=== PATIENT | male | born 1995 | race Caucasian/White ===

== ENCOUNTER 2020-10-16 09:17 | Emergency (ER) | payer SELFPAY ==
[~2020-10-16] VITALS: Ht 175.3 cm; Wt 81.6 kg
[2020-10-16 09:22] VITALS: BP 136/82
--- NOTE | 2020-10-16 09:28 | NUR ---
PATIENT BIBSELF, FOR A LACERATION ON LEFT MIDDLE FINGER W/ A STEEL AT WORK, CAN'T EXPLAIN HOW HE OBTAIN THE CUT. PATIENT ALERT AND ORIENTEDX4 AND ABLE TO MAKE NEEDS KNOWN. NO RESPIRATORY DISTRESS NOTED. AWAITING MD MCDONALD.
[2020-10-16] MEDS ORDERED: IBUPROFEN 600 MG TABLET ONE (09:38)
[2020-10-16] MEDS ORDERED: HYDROCODONE/APAP 5/325MG TABLET ONE (09:38)
[2020-10-16] MEDS ORDERED: LIDOCAINE 2% 20 ML MDV ONE (09:38)
[2020-10-16] MEDS: IBUPROFEN 600 MG TABLET PO ONE (09:41)
[2020-10-16] MEDS: HYDROCODONE/APAP 5/325MG TABLET PO ONE (09:42)
[2020-10-16] MEDS: LIDOCAINE 2% 20 ML MDV TP ONE (10:18)
[2020-10-16] MEDS ORDERED: CEPHALEXIN MONOHYDRATE 500 MG CAPSULE PO ONE (10:19)
[2020-10-16] MEDS: CEPHALEXIN MONOHYDRATE 500 MG CAPSULE PO ONE (10:20)
[2020-10-16] MEDS ORDERED: CEPH500C2 PO (10:48)
[2020-10-16] MEDS ORDERED: IBUP-1957 PO (10:48)
[2020-10-16] MEDS ORDERED: HYDR-3972 PO (10:48)
--- NOTE | 2020-10-16 10:52 | NUR ---
EMT DRESSED FINGER AND PLACED SPLINT
--- NOTE | 2020-10-16 11:10 | NUR ---
Patient discharged to home in stable condition. Written and verbal after care instructions given. Patient verbalizes understanding of instruction.
== END 2020-10-16 11:11 | disposition home or self-care (01) ==
LOC: ER 09:19
DX: S67.193A Crushing injury of left middle finger, initial encounter (principal); S62.633B Displaced fracture of distal phalanx of left middle finger, initial encounter for open fracture; W23.0XXA Caught, crushed, jammed, or pinched between moving objects, initial encounter; Y93.89 Activity, other specified; Y92.89 Other specified places as the place of occurrence of the external cause; Y99.8 Other external cause status
CPT/HCPCS: 29130; 73140; 99284; A6403; J3490

== ENCOUNTER → 2020-10-16 | Emergency (ER) | payer SELFPAY ==
[~2020-10-16] VITALS: Ht 175.3 cm; Wt 81.6 kg
[~2020-10-16] MED LIST: CEPH500C2 PO; HYDR-3972 PO; IBUP-1957 PO; TDAP [DIPH/PERTUSSIS/TET] 0.5 ML VIAL IM ONE
[2020-10-16 21:59] VITALS: BP 131/83
--- NOTE | 2020-10-16 22:35 | NUR ---
TDAP GIVEN TO LD.
[2020-10-16] MEDS: TDAP [DIPH/PERTUSSIS/TET] 0.5 ML VIAL IM ONE (22:40)
== END | disposition home or self-care (01) ==
LOC: ER 21:47
DX: S61.213D Laceration without foreign body of left middle finger without damage to nail, subsequent encounter (principal); X58.XXXD Exposure to other specified factors, subsequent encounter
CPT/HCPCS: 90715

== ENCOUNTER 2020-12-21 23:02 | Emergency (ER) | payer OTHER ==
[~2020-12-21] VITALS: Ht 175.3 cm; Wt 84.8 kg
[~2020-12-21 23:02] MED LIST changes: -TDAP [DIPH/PERTUSSIS/TET] 0.5 ML VIAL IM ONE
[2020-12-21] MEDS ORDERED: LEVO750T46 PO (23:50)
--- NOTE | 2020-12-21 23:58 | NUR ---
PATIENT DISCHARGED RX AND DC INSTRUCTIONS PROVIDED
[2020-12-21 23:59] VITALS: BP 144/77
== END 2020-12-21 23:58 | disposition home or self-care (01) ==
LOC: ER 23:04
DX: K52.9 Noninfective gastroenteritis and colitis, unspecified (principal); F17.200 Nicotine dependence, unspecified, uncomplicated; Z79.899 Other long term (current) drug therapy

== ENCOUNTER 2020-12-23 17:21 | Emergency (ER) | payer OTHER ==
[~2020-12-23] VITALS: Ht 175.3 cm; Wt 85.3 kg
[~2020-12-23 17:21] MED LIST changes: +LEVO750T46 PO
--- NOTE | 2020-12-23 17:53 | NUR ---
TO ER BED 10, FEVER X 10 DAYS, ON 2ND DAY OF [facility] PRESCRIBED HERE FOR "FOOD POISONING", AAOX3, BREATHING EVEN AND NON LABORED, AWAITING MD MCDONALD
[2020-12-23] MEDS ORDERED: ONDANSETRON HCL/PF 4 MG/2 ML VIAL IVP ONE (19:00)
[2020-12-23] MEDS ORDERED: IV NS 0.9% 1,000 ML BAG IV ONE (19:00)
[2020-12-23] MEDS ORDERED: ACETAMINOPHEN ES 500 MG TABLET PO ONE (19:00)
[2020-12-23] MEDS ORDERED: ONDANSETRON HCL/PF 4 MG/2 ML VIAL ONE (19:01)
[2020-12-23] MEDS ORDERED: ACETAMINOPHEN ES 500 MG TABLET ONE (19:02)
--- NOTE | 2020-12-23 19:05 | NUR ---
REC'D REPORT FROM LOLIS DELGADO FOR HONEY
--- NOTE | 2020-12-23 19:16 | NUR ---
SALINE LOCK ESTABLISHED, BLOOD DRAWN AND SENT TO LAB
--- NOTE | 2020-12-23 19:18 | NUR ---
COVID TEST COLLECTED AND SENT TO LAB
[2020-12-23 19:55] LABS: ALBUMIN 3.8 g/dL (3.4-5.0); BILIRUBIN,DIRECT 0.2 mg/dL (0.0-0.2); BILIRUBIN,TOTAL 0.6 mg/dL (0.2-1.0); CALCIUM, SERUM 8.3 mg/dL (8.5-10.1); POTASSIUM 3.6 mmol/L (3.5-5.1); TOTAL PROTEIN, SERUM 7.9 g/dL (6.4-8.2)
[2020-12-23 20:00] LABS: BASOPHILS # (AUTO) 0.1 K/uL (0.0-0.2); BASOPHILS % (AUTO) 0.4 % (0.0-2.0); EOSINOPHILS % (AUTO) 0.3 % (0.0-6.0); HEMATOCRIT 42 % (39-51); HEMOGLOBIN 14.5 g/dL (13.5-17.5); LYMPHOCYTES # (AUTO) 9.7 K/uL (0.8-4.8); LYMPHOCYTES % (AUTO) 70.8 % (20.0-44.0); MEAN CORPUSCULAR HGB CONC 35 g/dl (31.0-36.0); MEAN CORPUSCULAR VOLUME 90 fL (80-96); MONOCYTES % (AUTO) 7.2 % (2.0-12.0); NEUTROPHILS # (AUTO) 2.9 K/uL (1.8-8.9); NEUTROPHILS % (AUTO) 21.3 % (43.0-81.0); PLATELET COUNT (AUTO) 226 K/uL (150-450); RED BLOOD CELL COUNT(AUTO) 4.66 MIL/uL (4.5-6.0); WHITE BLOOD COUNT (AUTO) 13.8 K/uL (4.3-11.0)
[2020-12-23 20:32] LABS: LYMPHOCYTES % (MANUAL) 40 % (16-48); MONOCYTES % (MANUAL) 7 % (0-11.0); NEUTROPHILS % (MANUAL) 36 (42-76); REACTIVE LYMPHOCYTES 17 % (0-0)
[2020-12-23] MEDS ORDERED: ONDA4TAB5 PO (21:05)
--- NOTE | 2020-12-23 21:11 | NUR ---
Patient discharged to home in stable condition. Written and verbal after care instructions given. Patient verbalizes understanding of instruction. IV removed. Catheter intact and site benign. Pressure and 4x4 applied to site. No bleeding noted. Pt ambulatory with a steady gait
--- NOTE | 2020-12-23 21:11 | NUR ---
FLU SWAB SENT TO LAB
[2020-12-23 21:20] VITALS: BP 122/84
== END 2020-12-23 21:11 | disposition home or self-care (01) ==
LOC: ER 17:23
DX: K52.9 Noninfective gastroenteritis and colitis, unspecified (principal); Z20.822 Contact with and (suspected) exposure to COVID-19; R00.0 Tachycardia, unspecified; D72.829 Elevated white blood cell count, unspecified
CPT/HCPCS: 36415; 76705; 80048; 80076; 85007; 85025; 87426; 87804; 96361; 96374; 99284; C9803; J2405; J7030

== ENCOUNTER 2021-06-24 14:57 | Emergency (ER) | payer OTHER ==
[~2021-06-24] VITALS: Ht 175.3 cm; Wt 81.6 kg
[~2021-06-24 14:57] MED LIST changes: +ONDA4TAB5 PO
[2021-06-24 15:05] VITALS: BP 134/74
--- NOTE | 2021-06-24 17:33 | NUR ---
Patient discharged to home in stable condition. Written and verbal after care instructions given. Patient verbalizes understanding of instruction.
== END 2021-06-24 17:34 | disposition home or self-care (01) ==
LOC: ER 14:57
DX: S13.4XXA Sprain of ligaments of cervical spine, initial encounter (principal); S80.02XA Contusion of left knee, initial encounter; F17.200 Nicotine dependence, unspecified, uncomplicated; Z79.899 Other long term (current) drug therapy; V89.2XXA Person injured in unspecified motor-vehicle accident, traffic, initial encounter; Y93.89 Activity, other specified; Y92.89 Other specified places as the place of occurrence of the external cause; Y99.8 Other external cause status
CPT/HCPCS: 72050-TC; 72125-TC; 73564-TC

== ENCOUNTER 2021-07-08 10:37 | Emergency (ER) | payer OTHER ==
[~2021-07-08] VITALS: Ht 175.3 cm; Wt 79.4 kg
[2021-07-08 10:50] VITALS: BP 123/73
--- NOTE | 2021-07-08 10:50 | NUR ---
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
[2021-07-08] MEDS ORDERED: ONDA4TAB5 PO (11:06)
--- NOTE | 2021-07-08 11:19 | NUR ---
Patient discharged to home in stable condition. Written and verbal after care instructions given. Patient verbalizes understanding of instruction.
== END 2021-07-08 11:20 | disposition home or self-care (01) ==
LOC: ER 10:43
DX: B34.9 Viral infection, unspecified (principal); F17.200 Nicotine dependence, unspecified, uncomplicated; Z79.899 Other long term (current) drug therapy